=== PATIENT | male | born 1975 | race Caucasian/White ===

== ENCOUNTER 2020-06-17 20:22 | Emergency (ER) | payer OTHER, MEDICAID, SELFPAY ==
[2020-06-17 21:02] VITALS: BP 156/107; PULSE 68; RESP 24; TEMP 36.5; O2SAT 99
--- NOTE | 2020-06-17 21:20 | NUR.NOTE ---
Nursing Note:Pt brought in to room 2 for some emergency psych eval. Pt has [place] [employer] with him. Upon asking questions the pt states he doesnt know why he is here, he repeatedly has asked for narcotic cocaine pain medication and erythromycin for his staph infection. Pt has pressured speech and delusions Will continue to monitor.
[2020-06-17 21:50] LABS: Source Nasal/Nares
[2020-06-17 22:03] LABS: Absolute Basophil Count 0.05 10^3/uL (0.0-0.2); Absolute Eosinophil Count 0.13 10^3/uL (0.0-0.7); Absolute Lymphocyte Count 1.71 10^3/uL (1.2-3.4); Absolute Monocyte Count 0.53 10^3/uL (0.1-0.8); Absolute Neutrophil Count 2.39 10^3/uL (1.2-6.7); Eosinophils % 2.7; HCT 39.5 % (40.0-50.0); HGB 13.3 g/dL (13.5-17.5); Lymphocytes % 35.6; MCH 28.5 pg (27.0-33.0); MCHC 33.7 % (32.0-36.0); MCV 84.6 fL (80-95); MPV 10.3 fL (8.0-11.0); Neutrophils % 49.7; Nucleated RBC 0 %; Platelet Count 220 10^3/uL (130-400); RBC 4.67 10^6/uL (4.36-5.78); RDW-SD 39.8 fL; WBC 4.81 10^3/uL (4.4-10.8)
[2020-06-17 22:10] LABS: Anion Gap 5.9 mmol/L (3-11); BUN 9 mg/dL (7-18); CO2 31.1 mmol/L (21.0-32.0); CREATININE 0.9 mg/dL (0.70-1.30); Calcium 9.4 mg/dL (8.5-10.1); Chloride 103 mmol/L (98-107); Glucose 87 mg/dL (74-106); Potassium 3.5 mmol/L (3.5-5.1); Sodium 140 mmol/L (136-145)
[2020-06-17 22:16] VITALS: BP 160/85; PULSE 69; O2SAT 98
[2020-06-17 22:18] LABS: Salicylate < 2.8 mg/dL (<2.8)
[2020-06-17 22:19] LABS: Acetaminophen < 2 ug/mL (10-30)
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
[2020-06-17] MEDS: Acetaminophen 500 MG TAB 1000 MG PO (22:25)
[2020-06-17 22:59] LABS: ETHANOL BLOOD < 3.0 mg/dL (<3)
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
[2020-06-17 23:22] LABS: COVID-19 PCR Negative (Negative)
[2020-06-18 00:21] LABS: Bilirubin Negative (Negative); Blood Trace-intact (Negative); Clarity Clear (Clear); Glucose Negative (Negative); Ketones 15 mg/dL (Negative); Leukocyte Esterase Negative (Negative); Nitrite Negative (Negative); Urobilinogen 0.2 EU/dL (Up TO 0.2)
[2020-06-18 00:26] LABS: Epithelial Cells Negative HPF (Negative); Other Cells Few Spermatozoa (Negative); RBC 0-2 HPF (0-2); WBC Negative HPF (0-5)
[2020-06-18 00:27] LABS: Bacteria Negative HPF (Negative); C & S Indicated? No; Casts Negative LPF (Negative); Crystals Negative HPF (Negative); Mucus Trace (Negative)
[2020-06-18 00:31] LABS: *AMPHETAMINES SCREEN URINE Negative (Negative); *BARBITURATES SCREEN URINE Negative (Negative); *BENZODIAZEPINES SCREEN URINE Negative (Negative); Cannabinoids THC Negative (Negative); Cocaine Screen,Urine Negative (Negative); METHADONE URINE SCREEN Negative (Negative); OPIATES URINE SCREEN Negative (Negative)
[2020-06-18 00:33] LABS: Tricyclic Antidepressants Negative (Negative)
--- NOTE | 2020-06-18 12:28 | NUR.NOTE ---
Nursing Note: Office of Public Guardianship ([phone]) Antony Rehman ([phone])
[2020-06-18] MEDS: Lidocaine 5% Patch 1 PATCH (12:45)
--- NOTE | 2020-06-18 12:46 | NUR.NOTE ---
3527 patient complains of neck pain. He is requesting topical medication. Lidocaine patch ordered by Penny Mejia.
[2020-06-18 13:18] VITALS: BP 128/83; PULSE 81; RESP 14; TEMP 37.3; O2SAT 95
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
--- NOTE | 2020-06-18 20:40 | NUR.NOTE ---
Nursing Note:Assumed care from MARY Huber. Pt is awake and requesting to manscape, asking for tissues and new pants. Tissue and pants handed to sitter. Will continue to monitor.
[2020-06-19 07:18] VITALS: BP 120/90; PULSE 79; RESP 18; O2SAT 98
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
--- NOTE | 2020-06-19 11:25 | PDOC.CMSAFED ---
- If Service Date Differs Date of service: 06/19/20 Time of Service: 11:25 Care Management Safety Plan Status: Involuntary Safety plan has been established to meet the needs of the patient, and consideration of the care team, to adhere to patient goals, identify restrictions based on behavioral status, address nutrition, and determine allowed personal belongings, tools for hygiene and personal care. Determine level of activity including ambulation, level of supervision, visitors, and determine privileges based on behaviors and level of engagement by pt. A huddle was held at approximately 10:45 am and included: Matilda, Nursing mill labor supervisor, Julia, RN, Cecile, Charge nurse, Digna, MARY, Natalie, [facility], and NINFA Nath. SAFETY PLAN: 1. Will remain on SI/HI precautions. In Paper Clothes 2. Will remain in room under direct supervision of one-on-one staff at all times provided by [employer], JOY, OIL FIELD LABORER sales marketing director. 3. May have paper cups, plates, finger foods as well as a cardboard spoon 4. Follow [facility] Management of the Admitted Behavioral Health Patient policy. 5. Comfort bath system only. 6. No personal belongings. 7. Visitors: none. 8. Activities: may have crayons, coloring books, and other activities at RN discretion. 9. Bathroom privileges with escort. 10. Phone: None at this time. 11. Due to INVOLUNTARY status, patient is being held at [facility] by the Department of Mental Health ([facility]) until 2nd certification by [facility] Psychiatrist can be performed (within 24 hours). Staff will provide de-escalation support (CPI) as needed. If patient wishes to leave [facility], staff will contact [facility] Crisis Screener ([phone]) and On-Call Gis Developer ([phone]) as soon as possible. In the event of elopement, notify [place] [employer] ([phone]). Patient is currently involuntarily at [facility]. [facility] Frontline Histology Assistant will continue seeking placement. Please contact the Sheet Fed Printer Gis Developer ([phone]) for any needed changes to Safety Plan. Safety plan has been provided to interdepartmental care team. Patient will be transported by endoscopy technician at time of discharge.
--- NOTE | 2020-06-19 13:15 | NUR.NOTE ---
report given to [facility] Note:
--- NOTE | 2020-06-19 15:15 | NUR.NOTE ---
pt has been resting on his stretcher since eating lunch. alysa gonzales called to let us know that they will be transporting the pt at 1600Nursing Note:
[2020-06-19] MEDS: Lidocaine 5% Patch 1 PATCH TP (15:34)
--- NOTE | 2020-06-19 16:23 | PDOC.MHCN ---
Date of service: 06/19/20 Time of Service: 16:23 Mental Health Crisis Note Presenting Issue How did you arrive at the ED and why did you come: Pt arrived to the ER after [facility] Hayley Felix executed a warrant. Precipitating Factors Pt denied SI and HI and is showing signs of delusions. Disposition BEHAVIOR: Pt is pleasant but angry he is there and is noting that he believes that people are trespassing, and trapping and exploiting his skills and techniques and he should be financially compensated for them. He has been reported to be getting a little more verbally aggressive. EYE CONTACT: Pt makes good eye contact. MOOD: Pt reported he feels good. Pt presents as very social however, his thought process does not make sense. AFFECT: Intense at times. Otherwise normal. APPETITE: Good appetite. SLEEP(trouble falling/staying asleep: Pt reported he struggled with sleep as he was unable ot pull the curtain. Plan Pt was accepted to [facility] today before 6pm. Pt will be transported via legal office administrator to the hospital. Signature Clinician's Name/Title: Natalie Elkins MS, [facility] Emergency Services Clinician, [facility]
--- NOTE | 2020-06-19 16:39 | CMPROGNOTE_ITS ---
- If Service Date Differs Date of service: 06/19/20 Time of Service: 16:15 Care Management Progress Note S/O: Jose Luis remains at [facility] on involuntary status awaiting a psychiatric placement. He first arrived at [facility] on a warrant Monday evening due to delusional thinking and belief an underage girl was communicating with him telepathically. Today, Jose Luis is guarded and suspicious and at times verbally aggressive. A: Jose Luis is a 44 year old male who was admitted to [facility] on 06/17/20 for a ps ychiatric evaluation. P: Jose Luis has been accepted at [facility] for an involuntary placement. Transport to the [place] is via [facility]. - MH Services (Omit if N/A) Current MH Services: Psychiatric Inp ([facility])
--- NOTE | 2020-06-19 16:39 | PDOC.ERCMPRO ---
- If Service Date Differs Date of service: 06/19/20 Time of Service: 16:15 Care Management Progress Note S/O: Jose Luis remains at [facility] on involuntary status awaiting a psychiatric placement. He first arrived at [facility] on a warrant Monday evening due to delusional thinking and belief an underage girl was communicating with him telepathically. Today, Jose Luis is guarded and suspicious and at times verbally aggressive. A: Jose Luis is a 44 year old male who was admitted to [facility] on 06/17/20 for a psychiatric evaluation. P: Jose Luis has been accepted at [facility] for an involuntary placement. Transport to the [place] is via [facility]. - MH Services (Omit if N/A) Current MH Services: Psychiatric Inp ([facility])
== END 2020-06-19 16:16 | disposition short-term general hospital (02) ==
PROVIDERS: Physician Assistant; Emergency Provider Physician Assistant
DX: F22 Delusional disorders (principal); F23 Brief psychotic disorder; Z75.1 Person awaiting admission to adequate facility elsewhere; Z03.818 Encounter for observation for suspected exposure to other biological agents ruled out
CPT/HCPCS: 36415; 80048; 80307; 87635; 99281; 99285; 80320; 80329; 81003; 81015; 84443; 85025; 99284